=== PATIENT | female | born 1955 | race African-American/Black ===

== ENCOUNTER 2024-03-09 22:20 | Emergency (ER) | payer MEDICARE ==
[~2024-03-09] VITALS: Ht 172.7 cm; Wt 60.0 kg
[2024-03-09 22:22] VITALS: BP 114/59; PULSE 65; RESP 18; TEMP 97.9; O2SAT 100
[2024-03-09 23:06] LABS: BASOPHILS % 0.8 % (0.0-2.0); EOSINOPHILS % 5.1 % (0.0-5.0); HEMATOCRIT. 35.2 % (36.0-48.0); HEMOGLOBIN. 11.4 g/dL (12.0-16.0); LYMPHOCYTES % 28.2 % (20.0-50.0); MEAN CORPUSCULAR HEMOGLOBIN 26.7 pg (28.0-32.0); MEAN CORPUSCULAR HGB CONC 32.4 g/dL (31.0-37.0); MEAN CORPUSCULAR VOLUME 82.4 fL (81.0-99.0); MEAN PLATELET VOLUME 7.7 fl (7.4-10.4); MONOCYTES % 12.5 % (2.0-8.0); NEUTROPHILS % 53.4 % (40.0-76.0); PLATELET 289 x1000/uL (130-400); RED BLOOD CELL COUNT 4.27 mill/uL (4.2-5.4); RED CELL DISTRIBUTION WIDTH 14.3 % (11.6-14.6)
[2024-03-09 23:11] LABS: CHLORIDE 104 mEq/L (98-107); POTASSIUM 3.5 mEq/L (3.5-5.1); SODIUM 140 mEq/L (136-145)
[2024-03-09 23:12] LABS: CARBON DIOXIDE 31 mEq/L (21-32)
[2024-03-09 23:13] LABS: CALCIUM 9.4 mg/dL (8.7-10.4)
[2024-03-09 23:17] LABS: CREATININE 1.2 mg/dL (0.6-1.0); GLUCOSE 212 mg/dL (70-105)
[2024-03-09 23:18] LABS: UREA NITROGEN BLOOD 12 mg/dL (9-23)
[2024-03-09 23:19] LABS: CREATINE KINASE 109 IU/L (34-145); TROPONIN I HIGH SENSITIVITY 11 ng/L (3.0-34)
[2024-03-09 23:20] LABS: PHOSPHORUS 2.9 mg/dL (2.5-4.9)
[2024-03-10] MEDS: ACETAMINOPHEN 325MG TABLET PO NR (00:48)
[2024-03-10] MEDS ORDERED: ACET-2708 MT (04:47)
== END 2024-03-10 04:51 | disposition home or self-care (01) ==
LOC: ER 22:20
DX: R20.2 Paresthesia of skin (principal); E11.9 Type 2 diabetes mellitus without complications; I10 Essential (primary) hypertension
CPT/HCPCS: 36415; 71045; 80048; 82550; 83735; 83880; 84100; 84484; 85025; 93005; 93970; 99285

== ENCOUNTER 2024-03-14 08:47 | Inpatient (IN) | payer MEDICARE ==
[~2024-03-14] VITALS: Ht 175.3 cm; Wt 61.2 kg
[~2024-03-14 08:47] MED LIST: ACET-2708 MT
[2024-03-14] MEDS: METHOCARBAMOL 500MG TABLET PO ONE (09:25)
[2024-03-14 10:23] LABS: BASOPHILS % 0.6 % (0.0-2.0); EOSINOPHILS % 5.6 % (0.0-5.0); HEMATOCRIT. 34.9 % (36.0-48.0); HEMOGLOBIN. 11.3 g/dL (12.0-16.0); LYMPHOCYTES % 30.9 % (20.0-50.0); MEAN CORPUSCULAR HGB CONC 32.3 g/dL (31.0-37.0); MEAN CORPUSCULAR VOLUME 83.6 fL (81.0-99.0); MEAN PLATELET VOLUME 8.7 fl (7.4-10.4); MONOCYTES % 10.9 % (2.0-8.0); PLATELET 287 x1000/uL (130-400); RED BLOOD CELL COUNT 4.17 mill/uL (4.2-5.4); RED CELL DISTRIBUTION WIDTH 14.2 % (11.6-14.6)
[2024-03-14 10:56] LABS: CHLORIDE 107 mEq/L (98-107); SODIUM 143 mEq/L (136-145)
[2024-03-14 10:57] LABS: CARBON DIOXIDE 30 mEq/L (21-32)
[2024-03-14 11:02] LABS: GLUCOSE 135 mg/dL (70-105); UREA NITROGEN BLOOD 19 mg/dL (9-23)
[2024-03-14 11:03] LABS: TROPONIN I HIGH SENSITIVITY 10 ng/L (3.0-34)
[2024-03-14 12:19] LABS: TROPONIN I HIGH SENSITIVITY 11 ng/L (3.0-34)
[2024-03-14] MEDS ORDERED: CLONIDINE 0.1MG TABLET PO PRN (17:15)
[2024-03-14] MEDS ORDERED: DEXTROSE 50% WATER 50ML SYRINGE IV PRN (17:15)
[2024-03-14] MEDS ORDERED: HYDROCODONE/ACETAMINOPHEN 5/325MG TABLET PO PRN (17:15)
[2024-03-14] MEDS ORDERED: NALOXONE HCL 0.4MG/ML VIAL IV PRN (17:30)
[2024-03-14] MEDS: INSULIN LISPRO 100 UNITS/ML SUBCUT SCH (18:20)
[2024-03-14 20:10] VITALS: BP 112/55; PULSE 54; RESP 19; TEMP 36.28068; O2SAT 99
[2024-03-14 20:11] VITALS: BP 112/55; PULSE 54; RESP 19; TEMP 36.28068; O2SAT 99
[2024-03-14] MEDS: METFORMIN HCL 500MG TABLET PO NR (20:14)
[2024-03-14] MEDS: BLOOD SUGAR DIAGNOSTIC STRIP TEST SCH (20:17)
[2024-03-14] MEDS ORDERED: ZOLPIDEM TARTRATE 5MG TABLET PO PRN (21:00)
[2024-03-14] MEDS: ACETAMINOPHEN 325MG TABLET PO PRN (22:32)
[2024-03-15] VITALS (7 sets, daily range): BP systolic 96–137; BP diastolic 36–91; PULSE 48–86; RESP 17–19; TEMP 36.3068–36.9474; O2SAT 99–100
[2024-03-15 00:58] LABS: CREATINE KINASE MB FRACTION 1.2 ng/mL (0.5-3.6)
[2024-03-15 07:02] LABS: CHLORIDE 106 mEq/L (98-107); POTASSIUM 3.9 mEq/L (3.5-5.1); SODIUM 142 mEq/L (136-145)
[2024-03-15 07:03] LABS: CARBON DIOXIDE 31 mEq/L (21-32)
[2024-03-15 07:04] LABS: CALCIUM 9.8 mg/dL (8.7-10.4)
[2024-03-15 07:05] LABS: CREATINE KINASE MB FRACTION 0.8 ng/mL (0.5-3.6); TROPONIN I HIGH SENSITIVITY 10 ng/L (3.0-34)
[2024-03-15 07:08] LABS: GLUCOSE 93 mg/dL (70-105)
[2024-03-15 07:09] LABS: CREATINE KINASE 105 IU/L (34-145); UREA NITROGEN BLOOD 17 mg/dL (9-23)
[2024-03-15 07:16] LABS: BASOPHILS % 0.6 % (0.0-2.0); EOSINOPHILS % 4.4 % (0.0-5.0); LYMPHOCYTES % 35.2 % (20.0-50.0); MEAN CORPUSCULAR HGB CONC 32.4 g/dL (31.0-37.0); MEAN CORPUSCULAR VOLUME 83.2 fL (81.0-99.0); MEAN PLATELET VOLUME 8.4 fl (7.4-10.4); MONOCYTES % 10.7 % (2.0-8.0); NEUTROPHILS % 49.1 % (40.0-76.0); PLATELET 273 x1000/uL (130-400); RED BLOOD CELL COUNT 4.09 mill/uL (4.2-5.4); RED CELL DISTRIBUTION WIDTH 14.2 % (11.6-14.6)
[2024-03-15] MEDS: METFORMIN HCL 500MG TABLET PO SCH (08:13)
[2024-03-15] MEDS: ASPIRIN 81MG EC TABLET PO SCH (09:00)
[2024-03-15] MEDS: ENOXAPARIN 40MG/0.4ML SYR SUBCUT SCH (09:00)
[2024-03-16] VITALS (11 sets, daily range): BP systolic 104–128; BP diastolic 45–73; PULSE 53–71; RESP 13–21; TEMP 36.16956–37.1964; O2SAT 99–100
[2024-03-17] VITALS (8 sets, daily range): BP systolic 113–134; BP diastolic 61–81; PULSE 59–76; RESP 10–21; TEMP 36.61404–36.83628; O2SAT 97–100
[2024-03-17] MEDS: DEXAMETHASONE 4MG/ML 1ML VIAL IV SCH (12:47)
[2024-03-17 17:06] LABS: PROTHROMBIN TIME 11.3 sec (9.6-11.0)
[2024-03-18] VITALS: BP 122/61; PULSE 79; RESP 17; TEMP 36.61404; O2SAT 98
[2024-03-18 04:00] VITALS: BP 123/62; PULSE 61; RESP 14; O2SAT 99
[2024-03-18 06:39] LABS: CHLORIDE 108 mEq/L (98-107); SODIUM 141 mEq/L (136-145)
[2024-03-18 06:40] LABS: CARBON DIOXIDE 27 mEq/L (21-32)
[2024-03-18 06:41] LABS: CALCIUM 10.1 mg/dL (8.7-10.4)
[2024-03-18 06:42] LABS: PROTHROMBIN TIME 11.1 sec (9.6-11.0)
[2024-03-18 06:45] LABS: GLUCOSE 188 mg/dL (70-105); UREA NITROGEN BLOOD 18 mg/dL (9-23)
[2024-03-18 07:23] LABS: BASOPHILS % 0.3 % (0.0-2.0); HEMOGLOBIN. 11.9 g/dL (12.0-16.0); LYMPHOCYTES % 11.9 % (20.0-50.0); MEAN CORPUSCULAR HEMOGLOBIN 26.7 pg (28.0-32.0); MEAN CORPUSCULAR HGB CONC 32.2 g/dL (31.0-37.0); MEAN PLATELET VOLUME 8.9 fl (7.4-10.4); MONOCYTES % 4.1 % (2.0-8.0); NEUTROPHILS % 83.7 % (40.0-76.0); PLATELET 300 x1000/uL (130-400); RED BLOOD CELL COUNT 4.45 mill/uL (4.2-5.4); RED CELL DISTRIBUTION WIDTH 14.4 % (11.6-14.6); WHITE BLOOD COUNT 7.5 x1000/uL (4.5-11.0)
[2024-03-18 08:00] VITALS: BP 144/77; PULSE 66; RESP 18; TEMP 37.00296; O2SAT 100
[2024-03-18 12:00] VITALS: BP 124/58; PULSE 88; RESP 18; TEMP 36.22512; O2SAT 100
[2024-03-18 16:00] VITALS: BP 102/59; PULSE 74; RESP 20; TEMP 36.78072; O2SAT 98
[2024-03-18] MEDS ORDERED: METF-1149 MT (16:47)
[2024-03-18] MEDS ORDERED: DIPH25TA62 MT (16:47)
[2024-03-18] MEDS ORDERED: OMEP20TA23 PO (16:47)
[2024-03-18] MEDS ORDERED: ATOR20TA65 PO (16:47)
[2024-03-18] MEDS ORDERED: HYDR25TA78 MT (16:47)
[2024-03-18] MEDS ORDERED: AMLO-375 MT (16:47)
[2024-03-18] MEDS ORDERED: LEVO75TA PO (19:02)
[2024-03-18 20:00] VITALS: BP 126/59; PULSE 62; RESP 14; TEMP 36.3918; O2SAT 98
[2024-03-18] MEDS: LEVOTHYROXINE SODIUM 75MCG TABLET PO SCH (22:06)
[2024-03-19] VITALS (18 sets, daily range): BP systolic 97–135; BP diastolic 45–103; PULSE 47–113; RESP 10–20; TEMP 35.94732–36.6696; O2SAT 96–100
[2024-03-19] MEDS ORDERED: THROMBIN (BOVINE) 5000 UNITS/VIAL TOP ONE (13:02)
[2024-03-19] MEDS ORDERED: LIDOCAINE HCL/EPINEPHRINE 1%-EPI 1:100,000 20ML VIAL ONE (13:02)
[2024-03-19] MEDS ORDERED: GENTAMICIN SULF 40MG/ML 2ML VIAL ONE (13:02)
[2024-03-19] MEDS ORDERED: DEXAMETHASONE 4MG/ML 1ML VIAL ONE (13:11)
[2024-03-19] MEDS ORDERED: SUCCINYLCHOLINE CHLORIDE 200MG/10ML IV ONE (13:11)
[2024-03-19] MEDS ORDERED: ETOMIDATE 2MG/ML 10ML VIAL IV ONE (13:11)
[2024-03-19] MEDS ORDERED: ROCURONIUM BROMIDE 10MG/ML VIAL 5ML IV ONE (13:11)
[2024-03-19] MEDS ORDERED: FENTANYL CITRATE/PF 50MCG/ML 2ML VIAL ONE (13:11)
[2024-03-19] MEDS ORDERED: MIDAZOLAM HCL 2 MG/2 ML VIAL ONE (13:12)
[2024-03-19] MEDS ORDERED: PROPOFOL 200MG/20ML VIAL IV ONE ×2 (13:35→14:32)
[2024-03-19] MEDS ORDERED: FENTANYL CITRATE/PF 50MCG/ML 5ML VIAL ONE (13:36)
[2024-03-19] MEDS ORDERED: SUGAMMADEX SODIUM 200MG/2ML VIAL IV ONE (15:02)
[2024-03-19] MEDS: MORPHINE SULFATE 4 MG/ML INJ (FOR IV/IM USE) IV PRN (16:17)
[2024-03-19] MEDS: DEXT 5%/0.9% NACL 1,000 ML IV SCH (16:43)
[2024-03-19] MEDS: HYDROMORPHONE HCL/PF 1MG/ML INJ IV NR (18:59)
[2024-03-19] MEDS: DIGOXIN 500MCG/2ML AMP IV NR (20:36)
[2024-03-19] MEDS: HYDROMORPHONE HCL/PF 1MG/ML INJ IM PRN (21:37)
[2024-03-19] MEDS: CEFAZOLIN 1000MG PREMIX 50ML IV SCH (21:46)
[2024-03-19] MEDS ORDERED: CEFAZOLIN SODIUM 1000MG/VIAL IV SCH (22:00)
[2024-03-20] VITALS (57 sets, daily range): BP systolic 116–171; BP diastolic 44–110; PULSE 63–99; RESP 9–19; TEMP 36.33624–37.28076; O2SAT 93–100
[2024-03-20] MEDS: LEVOTHYROXINE SODIUM 75MCG TABLET PO SCH (08:47)
[2024-03-20] MEDS: AMLODIPINE 2.5MG TABLET PO SCH (13:23)
[2024-03-20] MEDS: DOCUSATE SODIUM 100MG CAPSULE PO SCH (14:01)
[2024-03-20] MEDS: NICARDIPINE 100 MG in SODIUM CHLORIDE 0.9% 60 ML IV PRN (14:02)
[2024-03-20 20:00] LABS: BASOPHILS % 0.2 % (0.0-2.0); EOSINOPHILS % 0.1 % (0.0-5.0); HEMATOCRIT. 36.5 % (36.0-48.0); HEMOGLOBIN. 11.6 g/dL (12.0-16.0); LYMPHOCYTES % 12.5 % (20.0-50.0); MEAN CORPUSCULAR HEMOGLOBIN 26.6 pg (28.0-32.0); MEAN CORPUSCULAR HGB CONC 31.8 g/dL (31.0-37.0); MEAN CORPUSCULAR VOLUME 83.7 fL (81.0-99.0); MEAN PLATELET VOLUME 8.5 fl (7.4-10.4); MONOCYTES % 11.3 % (2.0-8.0); NEUTROPHILS % 75.9 % (40.0-76.0); PLATELET 242 x1000/uL (130-400); RED BLOOD CELL COUNT 4.36 mill/uL (4.2-5.4); RED CELL DISTRIBUTION WIDTH 14.5 % (11.6-14.6); WHITE BLOOD COUNT 11.2 x1000/uL (4.5-11.0)
[2024-03-20 20:05] LABS: CHLORIDE 108 mEq/L (98-107); POTASSIUM 3.5 mEq/L (3.5-5.1); SODIUM 140 mEq/L (136-145)
[2024-03-20 20:06] LABS: CALCIUM 9.1 mg/dL (8.7-10.4); CARBON DIOXIDE 27 mEq/L (21-32)
[2024-03-20 20:11] LABS: CREATININE 0.9 mg/dL (0.6-1.0); GLUCOSE 161 mg/dL (70-105); UREA NITROGEN BLOOD 11 mg/dL (9-23)
[2024-03-20 20:16] LABS: T4 FREE 1.46 ng/dL (0.89-1.76); THYROID STIMULATING HORMONE 10.48 uIU/mL (0.55-4.78)
[2024-03-20] MEDS: LOSARTAN 50 MG TABLET PO SCH (21:45)
[2024-03-21] VITALS (64 sets, daily range): BP systolic 110–168; BP diastolic 44–147; PULSE 71–116; RESP 10–24; TEMP 36.61404–37.28076; O2SAT 94–99
[2024-03-21 05:20] LABS: CARBON DIOXIDE 29 mEq/L (21-32); CHLORIDE 105 mEq/L (98-107); POTASSIUM 3.6 mEq/L (3.5-5.1); SODIUM 139 mEq/L (136-145)
[2024-03-21 05:21] LABS: CALCIUM 9.1 mg/dL (8.7-10.4)
[2024-03-21 05:26] LABS: CREATININE 0.8 mg/dL (0.6-1.0); GLUCOSE 132 mg/dL (70-105); UREA NITROGEN BLOOD 10 mg/dL (9-23)
[2024-03-21 05:34] LABS: BASOPHILS % 0.3 % (0.0-2.0); EOSINOPHILS % 0.1 % (0.0-5.0); HEMATOCRIT. 34.8 % (36.0-48.0); HEMOGLOBIN. 11.3 g/dL (12.0-16.0); LYMPHOCYTES % 18.5 % (20.0-50.0); MEAN CORPUSCULAR HEMOGLOBIN 26.9 pg (28.0-32.0); MEAN CORPUSCULAR HGB CONC 32.6 g/dL (31.0-37.0); MEAN CORPUSCULAR VOLUME 82.7 fL (81.0-99.0); MEAN PLATELET VOLUME 9.2 fl (7.4-10.4); MONOCYTES % 11.6 % (2.0-8.0); NEUTROPHILS % 69.5 % (40.0-76.0); PLATELET 245 x1000/uL (130-400); RED BLOOD CELL COUNT 4.21 mill/uL (4.2-5.4); RED CELL DISTRIBUTION WIDTH 14.1 % (11.6-14.6)
[2024-03-21] MEDS: HYDROCODONE/ACETAMINOPHEN 7.5/325MG TABLET PO PRN (08:39)
[2024-03-21] MEDS ORDERED: ACETAMINOPHEN 1000MG/100ML 100 ML IV PRN (13:30)
[2024-03-21] MEDS: HYDROCODONE/ACETAMINOPHEN 10/325MG TABLET PO PRN (16:42)
[2024-03-22] VITALS (74 sets, daily range): BP systolic 99–145; BP diastolic 43–95; PULSE 69–102; RESP 8–25; TEMP 36.89184–37.28076; O2SAT 93–99
[2024-03-22] MEDS: ONDANSETRON HCL 4MG/2ML INJ IV PRN ×2 (02:16→17:08)
[2024-03-22 06:31] LABS: CALCIUM 9.2 mg/dL (8.7-10.4); CHLORIDE 104 mEq/L (98-107); POTASSIUM 3.8 mEq/L (3.5-5.1); SODIUM 140 mEq/L (136-145)
[2024-03-22 06:32] LABS: CARBON DIOXIDE 30 mEq/L (21-32)
[2024-03-22 06:37] LABS: CREATININE 0.8 mg/dL (0.6-1.0); GLUCOSE 123 mg/dL (70-105); HEMATOCRIT 34.5 % (36.0-48.0); HEMOGLOBIN 11.2 g/dL (12.0-16.0); MEAN CORPUSCULAR HEMOGLOBIN 27.2 pg (28.0-32.0); MEAN CORPUSCULAR HGB CONC 32.6 g/dL (31.0-37.0); MEAN CORPUSCULAR VOLUME 83.4 fL (81.0-99.0); PLATELET 231 x1000/uL (130-400); RED BLOOD CELL COUNT 4.14 mill/uL (4.2-5.4); RED CELL DISTRIBUTION WIDTH 14.7 % (11.6-14.6); UREA NITROGEN BLOOD 13 mg/dL (9-23); WHITE BLOOD COUNT 7.7 x1000/uL (4.5-11.0)
[2024-03-22] MEDS: PANTOPRAZOLE SODIUM 40 MG/VIAL IV SCH (14:42)
[2024-03-23] VITALS (41 sets, daily range): BP systolic 91–134; BP diastolic 42–105; PULSE 62–94; RESP 9–23; TEMP 36.78072–37.39188; O2SAT 93–100
[2024-03-24] VITALS: BP 105/55; PULSE 89; RESP 20; TEMP 37.66968; O2SAT 97
[2024-03-24 04:00] VITALS: BP 112/59; PULSE 84; RESP 19; TEMP 37.503; O2SAT 97
[2024-03-24 08:00] VITALS: BP 123/58; PULSE 76; RESP 18; TEMP 36.50292; O2SAT 96
[2024-03-24 12:06] VITALS: BP 104/60; PULSE 82; RESP 18; TEMP 36.55848; O2SAT 98
[2024-03-24 16:04] VITALS: BP 104/60; PULSE 82; RESP 18; TEMP 36.55848; O2SAT 98
[2024-03-24 20:00] VITALS: BP 99/46; PULSE 92; RESP 18; TEMP 36.61404; O2SAT 99
[2024-03-25] VITALS: BP 114/58; PULSE 81; RESP 18; TEMP 37.33632; O2SAT 99
[2024-03-25 04:00] VITALS: BP 121/64; PULSE 90; RESP 18; TEMP 37.00296; O2SAT 99
[2024-03-25 08:01] VITALS: BP 110/54; PULSE 70; RESP 18; TEMP 36.55848; O2SAT 100
[2024-03-25 12:04] VITALS: BP 122/56; PULSE 84; RESP 20; TEMP 36.6696; O2SAT 99
[2024-03-25 16:05] VITALS: BP 122/66; PULSE 94; RESP 18; TEMP 37.11408; O2SAT 100
[2024-03-25 20:00] VITALS: BP 112/60; PULSE 80; RESP 19; TEMP 36.6696; O2SAT 97
[2024-03-26] VITALS: BP 129/67; PULSE 73; RESP 18; TEMP 36.44736; O2SAT 99
[2024-03-26 04:00] VITALS: BP 141/68; PULSE 76; RESP 19; TEMP 36.33624; O2SAT 98
[2024-03-26 08:00] VITALS: BP 117/60; PULSE 79; RESP 18; TEMP 36.00288; O2SAT 99
[2024-03-26 12:00] VITALS: BP 119/60; PULSE 71; RESP 18; TEMP 36.61404; O2SAT 98
[2024-03-26 16:00] VITALS: BP 127/63; PULSE 87; RESP 18; TEMP 36.61404; O2SAT 97
[2024-03-26] MEDS: LACTULOSE 20G/30ML UDC PO NR (17:39)
[2024-03-26 20:00] VITALS: BP 125/57; PULSE 97; RESP 18; TEMP 36.33624; O2SAT 96
[2024-03-27] VITALS: BP 110/60; PULSE 80; RESP 18; TEMP 36.28068; O2SAT 97
[2024-03-27 04:00] VITALS: BP 121/66; PULSE 74; RESP 18; TEMP 36.16956; O2SAT 97
[2024-03-27 08:00] VITALS: BP 113/62; PULSE 77; RESP 18; TEMP 36.55848; O2SAT 100
[2024-03-27 12:00] VITALS: BP 107/44; PULSE 83; RESP 20; TEMP 36.61404; O2SAT 100
[2024-03-27 16:00] VITALS: BP 114/68; PULSE 85; RESP 20; TEMP 36.50292; O2SAT 100
[2024-03-27 20:00] VITALS: BP 122/58; PULSE 89; RESP 18; TEMP 36.3918; O2SAT 98
[2024-03-27] MEDS ORDERED: MAGNESIUM HYDROXIDE 400MG/5ML 30ML UDC PO PRN (22:30)
[2024-03-28] VITALS: BP 109/59; PULSE 83; RESP 19; TEMP 36.33624; O2SAT 98
[2024-03-28 04:00] VITALS: BP 142/76; PULSE 71; RESP 19; TEMP 36.3918; O2SAT 100
[2024-03-28 12:00] VITALS: BP 119/62; PULSE 72; RESP 18; TEMP 36.33624; O2SAT 98
[2024-03-28 16:00] VITALS: BP 107/48; PULSE 77; RESP 18; TEMP 36.50292; O2SAT 98
[2024-03-28 20:00] VITALS: BP 104/63; PULSE 74; RESP 18; TEMP 36.89184; O2SAT 98
[2024-03-29] VITALS: BP 103/57; PULSE 74; RESP 18; TEMP 36.55848; O2SAT 97
[2024-03-29 04:00] VITALS: BP 108/54; PULSE 78; RESP 18; TEMP 37.00296; O2SAT 98
[2024-03-29 08:00] VITALS: BP 102/47; PULSE 70; RESP 18; TEMP 35.8362
[2024-03-29 12:00] VITALS: BP 97/60; PULSE 82; RESP 18; TEMP 37.28076; O2SAT 99
[2024-03-29 16:00] VITALS: BP 109/55; PULSE 78; RESP 18; TEMP 36.78072; O2SAT 98
[2024-03-29 20:00] VITALS: BP 107/62; PULSE 76; RESP 20; TEMP 36.16956; O2SAT 97
[2024-03-30] VITALS: BP 121/52; PULSE 71; RESP 20; TEMP 36.28068; O2SAT 99
[2024-03-30 04:00] VITALS: BP 112/56; PULSE 69; RESP 20; TEMP 36.114; O2SAT 97
[2024-03-30 08:00] VITALS: BP 108/52; PULSE 62; RESP 18; TEMP 36.6696; O2SAT 98
[2024-03-30 12:00] VITALS: BP 110/60; PULSE 66; RESP 20; TEMP 36.44736; O2SAT 97
[2024-03-30 14:31] VITALS: BP 110/60; PULSE 66; TEMP 98.1; O2SAT 98
[2024-03-30 16:00] VITALS: BP 119/59; PULSE 77; RESP 18; TEMP 36.61404; O2SAT 100
== END 2024-03-30 21:32 | DRG 471 ==
LOC: ER 08:47 → EDBEDREQ 10:54 → EDBEDREQTM 10:54 → 5WST 19:35 → 5EST 03-16 11:15 → MICUSO 03-19 16:30 → 8WST 03-23 12:00
PROVIDERS: ADMIT Internal Medicine; ATTEND Internal Medicine
PROC: 0RG2071 Fusion of 2 or more Cervical Vertebral Joints with Autologous Tissue Substitute, Posterior Approach, Posterior Column, Open Approach (ICD-10-PCS; principal; 2024-03-19)
DX: M48.02 Spinal stenosis, cervical region (principal); G82.50 Quadriplegia, unspecified; G95.89 Other specified diseases of spinal cord; G95.20 Unspecified cord compression; I10 Essential (primary) hypertension; E11.9 Type 2 diabetes mellitus without complications; E78.5 Hyperlipidemia, unspecified; I45.10 Unspecified right bundle-branch block; I49.3 Ventricular premature depolarization; E05.90 Thyrotoxicosis, unspecified without thyrotoxic crisis or storm; M54.9 Dorsalgia, unspecified; R07.89 Other chest pain; Z82.49 Family history of ischemic heart disease and other diseases of the circulatory system
CPT/HCPCS: 36415; 71045; 72141; 80048; 82550; 82553; 82962; 83036; 83880; 84439; 84443; 84484; 85025; 85027; 86850; 86900; 88304; 88311; 93005; 93306; 93970; 97116; 97161; 97162; 97530; 99285; J0330; J0690; J1100; J1160; J1171; J1580; J1650; J1815; J2250; J2270; J2405; J2470; J2704; J3010; J3490; J7042; J7050; L0172; C1713